=== PATIENT | female | born 1995 | race Caucasian/White ===

== ENCOUNTER 2017-09-29 10:51 | Outpatient (CLI) | payer MEDICAID, OTHER ==
[2017-09-29 13:11] LABS: ADD UMIC YES; UR ASCORBIC ACID NEGATIVE (NEGATIVE); UR BILIRUBIN (Dip) NEGATIVE (NEGATIVE); UR BLOOD (Dip) NEGATIVE (NEGATIVE); UR CALCIUM OXALATE CRYSTAL MANY /HPF (NONE SEEN); UR CLARITY CLOUDY (CLEAR); UR COLOR AMBER (YELLOW); UR GLUCOSE (Dip) NEGATIVE (NEGATIVE); UR KETONES (Dip) NEGATIVE (NEGATIVE); UR LEUKOCYTE ESTERASE (Dip) NEGATIVE Leu/ul (NEGATIVE); UR MUCUS MODERATE /HPF (NONE SEEN); UR NITRITE (Dip) NEGATIVE (NEGATIVE); UR RBC 0 /HPF (0-5); UR SPECIFIC GRAVITY (Dip) 1.029 (1.003-1.030); UR SQUAMOUS EPITHELIAL CELL MANY /HPF (FEW); UR TOTAL PROTEIN (Dip) 1+ mg/dl (NEGATIVE); UR UROBILINOGEN (Dip) 1+ mg/dL (NEGATIVE); UR WBC 3 /HPF (0-5)
== END 2017-09-29 14:00 | disposition home or self-care (01) ==
LOC: OBT 10:51 → L-D 10:55 → OBT 14:00
DX: O26.892 Other specified pregnancy related conditions, second trimester (principal); R10.9 Unspecified abdominal pain; Z3A.27 27 weeks gestation of pregnancy
CPT/HCPCS: 76818; 81001; 87086

== ENCOUNTER 2017-11-29 17:34 | Outpatient (CLI) | payer MEDICAID | END 2017-11-29 22:20 | disposition home or self-care (01) | LOC: OBT 17:34 → L-D 17:35 → OBT 22:20 | DX: O62.9 Abnormality of forces of labor, unspecified (principal); Z3A.36 36 weeks gestation of pregnancy | CPT/HCPCS: 76815; 76818 ==

== ENCOUNTER 2017-12-10 10:09 | Outpatient (CLI) | payer MEDICAID | END 2017-12-10 13:50 | disposition home or self-care (01) | LOC: OBT 10:09 → L-D 10:10 → OBT 13:50 | DX: O36.8130 Decreased fetal movements, third trimester, not applicable or unspecified (principal); Z3A.38 38 weeks gestation of pregnancy | CPT/HCPCS: 76818 ==

== ENCOUNTER 2017-12-14 21:52 | Inpatient (IN) | payer MEDICAID ==
[2017-12-14] MEDS ORDERED: LACTATED RINGER'S 1,000 ML IV (22:59)
[2017-12-14] MEDS ORDERED: OXYTOCIN 30 UNITS/LR 500 ML IV ×2 (23:00)
[2017-12-14] MEDS ORDERED: LIDOCAINE 1% (MPF) 30 ML INJ INJ (23:00)
[2017-12-14] MEDS ORDERED: CARBOPROST 250 MCG INJ IM (23:00)
[2017-12-14] MEDS ORDERED: MISOPROSTOL 200 MCG TAB PR (23:00)
[2017-12-14] MEDS ORDERED: METHYLERGONOVINE 0.2 MG INJ IM (23:00)
[2017-12-14] MEDS: LACTATED RINGER'S 1,000 ML IV (23:21)
[2017-12-15 00:32] LABS: ADD MAN DIFF? NO
[2017-12-15 00:37] LABS: WHITE BLOOD COUNT 9.4 10^3/ul (4.8-10.8)
[2017-12-15 00:37] LABS: BASOPHIL # 0.1 10^3/ul (0.0-0.1); BASOPHILS % 0.5 % (0.0-2.0); EOSINOPHILS # 0.1 10^3/ul (0.0-0.5); EOSINOPHILS % 1.4 % (0.0-7.0); HEMATOCRIT 33.3 % (37.0-47.0); HEMOGLOBIN 11.3 g/dl (12.0-16.0); LYMPHOCYTES # 2.5 10^3/ul (0.8-2.9); MEAN CORPUSCULAR HEMOGLOBIN 28.9 pg (29.0-33.0); MEAN CORPUSCULAR HGB CONC 33.9 g/dl (32.0-37.0); MEAN CORPUSCULAR VOLUME 85.2 fl (82.0-101.0); MEAN PLATELET VOLUME 11.2 fl (7.4-10.4); MONOCYTE # 0.8 10^3/ul (0.3-0.9); MONOCYTES % 8.2 % (0.0-11.0); NEUTROPHILS % 63.4 % (39.0-77.0); PLATELET COUNT 278 10^3/UL (140-415); RED BLOOD COUNT 3.91 10^6/ul (4.20-5.40); RED CELL DISTRIBUTION WIDTH 13.8 % (11.5-14.5)
[2017-12-15 01:02] LABS: INR 0.91; PROTIME 12.3 Sec (11.9-14.9)
[2017-12-15 01:03] LABS: PARTIAL THROMBOPLASTIN TIME 27.6 Sec (25.0-35.0)
[2017-12-15 01:30] LABS: HEPATITIS B SURFACE ANTIGEN NEGATIVE (NEGATIVE)
[2017-12-15] MEDS ORDERED: LACTATED RINGER'S 1,000 ML IV (04:42)
[2017-12-15] MEDS: BUTORPHANOL 2 MG INJ IV (06:51)
[2017-12-15] MEDS: LACTATED RINGER'S 1,000 ML IV ×2 (07:49→10:53)
[2017-12-15] MEDS ORDERED: FENTAnyl 2MCG/ML-ROPIV 0.2% 100 ML BAG EPI (10:30)
[2017-12-15] MEDS ORDERED: NALOXONE (0.4 MG/ML) INJ IV (10:30)
[2017-12-15] MEDS ORDERED: ONDANSETRON 4 MG INJ IV ×2 (10:30→22:30)
[2017-12-15] MEDS ORDERED: DIPHENHYDRAMINE 50 MG INJ IV (10:30)
[2017-12-15] MEDS ORDERED: EPHEDrine SULFATE 50 MG/5 ML SYG IV (10:30)
[2017-12-15] MEDS: OXYTOCIN 30 UNITS/LR 500 ML IV ×3 (12:24→23:48)
[2017-12-15 14:01] LABS: RAPID PLASMA REAGIN NONREACTIVE (NR)
[2017-12-15] MEDS: IBUPROFEN 600 MG TAB PO (19:35)
[2017-12-15] MEDS ORDERED: OXYCODONE/ASPIRIN (4.88/325) TAB PO ×2 (22:30)
[2017-12-15] MEDS ORDERED: HYDROCODONE/APAP (5/325) TAB PO ×2 (22:30)
[2017-12-15] MEDS ORDERED: ACETAMINOPHEN 325 MG TAB PO (22:30)
[2017-12-15] MEDS ORDERED: DIBUCAINE 1% 30 GM OINT PR (22:30)
[2017-12-15] MEDS ORDERED: LANOLIN 7 GM TUBE TOP (22:30)
[2017-12-15] MEDS: BENZOCAINE 20% 56 ML SPRAY TOP (23:38)
[2017-12-15] MEDS: WITCH HAZEL/GLYCERIN PAD PR (23:38)
[2017-12-16] MEDS: IBUPROFEN 600 MG TAB PO ×4 (00:30→18:10)
[2017-12-16] MEDS: FOLIC ACID 1 MG TAB PO (09:30)
[2017-12-16] MEDS: SENNA/DOCUSATE NA (8.6MG/50MG) TAB PO ×2 (09:30→21:00)
[2017-12-16 11:34] LABS: ADD MAN DIFF? NO
[2017-12-16 11:40] LABS: BASOPHIL # 0.1 10^3/ul (0.0-0.1); BASOPHILS % 0.4 % (0.0-2.0); EOSINOPHILS # 0.1 10^3/ul (0.0-0.5); EOSINOPHILS % 0.8 % (0.0-7.0); HEMATOCRIT 31.1 % (37.0-47.0); HEMOGLOBIN 10.4 g/dl (12.0-16.0); LYMPHOCYTES # 2.2 10^3/ul (0.8-2.9); LYMPHOCYTES % 16.8 % (15.0-51.0); MEAN CORPUSCULAR HEMOGLOBIN 28.7 pg (29.0-33.0); MEAN CORPUSCULAR HGB CONC 33.4 g/dl (32.0-37.0); MEAN CORPUSCULAR VOLUME 85.9 fl (82.0-101.0); MEAN PLATELET VOLUME 11.5 fl (7.4-10.4); MONOCYTE # 0.9 10^3/ul (0.3-0.9); MONOCYTES % 6.7 % (0.0-11.0); NEUTROPHIL # 9.8 10^3/ul (1.6-7.5); NEUTROPHILS % 74.8 % (39.0-77.0); PLATELET COUNT 237 10^3/UL (140-415); RED BLOOD COUNT 3.62 10^6/ul (4.20-5.40); RED CELL DISTRIBUTION WIDTH 14.1 % (11.5-14.5)
[2017-12-16 11:40] LABS: WHITE BLOOD COUNT 13.1 10^3/ul (4.8-10.8)
[2017-12-17] MEDS: IBUPROFEN 600 MG TAB PO ×3 (00:15→11:28)
[2017-12-17] MEDS: SENNA/DOCUSATE NA (8.6MG/50MG) TAB PO (08:15)
[2017-12-17] MEDS: FOLIC ACID 1 MG TAB PO (08:15)
[2017-12-17] MEDS: MEASLES,MUMPS,RUBELLA VACCINE INJ SC* (09:00)
== END 2017-12-17 14:30 | disposition home or self-care (01) | DRG 775 ==
LOC: OBT 21:52 → PP1 12-15 20:54 → L-D 21:52 → OBT 23:24 → L-D 23:25
PROVIDERS: Obstetrics & Gynecology
PROC: 10E0XZZ Delivery of Products of Conception, External Approach (ICD-10-PCS; principal; 2017-12-15)
PROC: 3E033VJ Introduction of Other Hormone into Peripheral Vein, Percutaneous Approach (ICD-10-PCS; 2017-12-15)
DX: O69.81X0 Labor and delivery complicated by cord around neck, without compression, not applicable or unspecified (principal); O99.214 Obesity complicating childbirth; E66.9 Obesity, unspecified; Z68.38 Body mass index [BMI] 38.0-38.9, adult; Z3A.39 39 weeks gestation of pregnancy; Z37.0 Single live birth
CPT/HCPCS: 62319; 76815; 85025; 85610; 85730; 86592; 86885; 86900; 86901; 87340; 88307; 99464